=== PATIENT | female | born 1950 | race Caucasian/White ===

== ENCOUNTER 2016-10-23 05:32 | Inpatient (IN) | payer OTHER, MEDICARE ==
[~2016-10-23] VITALS: Ht 162.6 cm; Wt 154.9 kg
[~2016-10-23 05:32] MED LIST: AMLO10TA2 PO; GLIP10TA6 PO; LISI-515 PO; METO50TA PO; TRAM50TA PO
[2016-10-23] MEDS ORDERED: METOPROLOL TARTRATE 25 MG TAB PO PRN (06:00)
[2016-10-23] MEDS ORDERED: CHLORHEXIDINE GLUCONATE 2 % 1 PACK (2 CLOTHS) TOPICAL PRN (06:00)
[2016-10-23] MEDS ORDERED: POVIDONE IODINE 5% (ANTISEPSIS KIT) 4 APPLICATIONS EACH NARE PRN (06:00)
[2016-10-23] MEDS ORDERED: LACTATED RINGER'S 1000 ML IV PRN (06:00)
[2016-10-23] MEDS ORDERED: INSULIN HUMAN REGULAR 1,000 UNITS/10 ML VIAL SQ PRN (06:00)
[2016-10-23] MEDS ORDERED: SODIUM CHLORID 0.9% 500 ML IV PRN (06:00)
[2016-10-23] MEDS ORDERED: ACET-822 PO (06:11)
[2016-10-23 06:22] VITALS: BP 156/70; PULSE 56; RESP 20; TEMP 98.2; O2SAT 93
[2016-10-23] MEDS ORDERED: HEPARIN SODIUM - SQ 10,000 UNITS/ML VIAL SQ SCH (06:30)
[2016-10-23] MEDS ORDERED: ceFAZolin 2 GM PREMIX 50 ML IV SCH (06:30)
[2016-10-23 06:56] LABS: BASOPHIL # 0.1 TH/MM3 (0-0.2); BASOPHIL % 0.6 % (0.0-2.0); EOSINOPHIL # 0.1 TH/MM3 (0-0.4); EOSINOPHIL % 1.2 % (0.0-4.0); HEMATOCRIT 36.9 % (35.0-46.0); HEMO FLAGS DIFF FINAL; LYMPH % 18.3 % (9.0-44.0); LYMPHOCYTE # 1.8 TH/MM3 (1.0-4.8); MEAN CELL VOLUME 88.6 FL (80.0-100.0); MEAN CORPUSCULAR HEMOGLOBIN 29.4 PG (27.0-34.0); MEAN CORPUSCULAR HGB CONC 33.2 % (32.0-36.0); MONO % 8.4 % (0.0-8.0); NEUT % 71.5 % (16.0-70.0); PLATELET COUNT 271 TH/MM3 (150-450); RED BLOOD COUNT 4.16 MIL/MM3 (4.00-5.30); RED CELL DISTRIBUTION WIDTH 14.5 % (11.6-17.2); WHITE BLOOD COUNT 9.8 TH/MM3 (4.0-11.0)
[2016-10-23 07:08] LABS: ALT (GPT) 29 U/L (10-53); ANION GAP 6 MEQ/L (5-15); AST (GOT) 19 U/L (15-37); BICARBONATE 31.5 MEQ/L (21.0-32.0); BLOOD UREA NITROGEN 22 MG/DL (7-18); CHLORIDE 104 MEQ/L (98-107); GLOMERULAR FILTRATION RATE 39 ML/MIN (>89); POTASSIUM 4.3 MEQ/L (3.5-5.1); SODIUM (NA) 141 MEQ/L (136-145)
[2016-10-23] MEDS ORDERED: ARTIFICIAL TEARS OPTH OINT 3.5 APPLIC/3.5 GM TUBO ONE (07:08)
[2016-10-23] MEDS ORDERED: DEXAMETHASONE SOD PHOS 4 MG/ML VIAL ONE (07:09)
[2016-10-23] MEDS ORDERED: SUGAMMADEX SODIUM 200 MG/2 ML VIAL IV PUSH ONE ×2 (07:09)
[2016-10-23] MEDS ORDERED: MIDAZOLAM HCL 2 MG/2 ML VIAL ONE (07:09)
[2016-10-23] MEDS ORDERED: HYDROmorphone HCL PF 2 MG/ML VIAL ONE (07:09)
[2016-10-23 07:10] LABS: ALKALINE PHOSPHATASE 104 U/L (45-117); TOTAL BILIRUBIN ADULT 0.4 MG/DL (0.2-1.0)
[2016-10-23 07:12] LABS: APTT (PATIENT) 31.7 SEC (24.3-30.1)
[2016-10-23] MEDS ORDERED: PROPOFOL 200 MG/20 ML AMP IV ONE (08:33)
[2016-10-23] MEDS ORDERED: NEOSTIGMINE 3 MG/3 ML SYR IV ONE (08:33)
[2016-10-23] MEDS ORDERED: ONDANSETRON HCL 4 MG/2 ML VIAL IV PUSH ONE (08:34)
[2016-10-23] MEDS ORDERED: VECURONIUM BROMIDE 10 MG VIAL IV ONE (08:34)
[2016-10-23] MEDS ORDERED: KETOROLAC TROMETHAMINE 60 MG/2 ML (IM) VIAL IM ONE (08:34)
[2016-10-23] MEDS ORDERED: NORMOSOL R INJ 2,000 ML IV ONE (08:35)
[2016-10-23] MEDS ORDERED: LIDOCAINE 1%/EPINEPHrine 1:100,000 SOLN 30 ML VIAL INFIL ONE (09:37)
[2016-10-23] MEDS ORDERED: ceFAZolin INJ 1,000 MG VIAL IV ONE (10:40)
[2016-10-23] MEDS ORDERED: NALOXONE HCL 0.4 MG/ML AMP IV PRN (12:45)
[2016-10-23] MEDS ORDERED: ONDANSETRON HCL 4 MG/2 ML VIAL IVP PRN (12:45)
[2016-10-23] MEDS ORDERED: diphenhydrAMINE HCL 25 MG CAP PO PRN (12:45)
[2016-10-23] MEDS ORDERED: oxyCODONE/ACETAMINOPHEN 5 MG/325 MG TAB PO PRN (12:45)
[2016-10-23] MEDS ORDERED: SODIUM CHLORIDE 0.9% FLUSH 10 ML FLUSH IV FLUSH PRN (12:45)
[2016-10-23] MEDS ORDERED: LORazepam 0.5 MG TAB PO PRN (12:45)
[2016-10-23] MEDS ORDERED: MORPHINE SULFATE 30 MG/30 ML PCA IV SCH (12:45)
[2016-10-23] MEDS ORDERED: FUROSEMIDE 20 MG/2 ML VIAL ONE (13:18)
[2016-10-23] MEDS ORDERED: fentaNYL CITRATE 250 MCG/5 ML AMP ONE (13:43)
[2016-10-23] MEDS ORDERED: DO NOT ADM ANY ANTICOAGULANT DRUGS PRN (13:45)
[2016-10-23] MEDS ORDERED: DEXTROSE 50% IN WATER 50 ML VIAL(D50) IV PUSH PRN (14:15)
[2016-10-23] MEDS ORDERED: GLUCAGON 1 MG/ML VIAL OTHER PRN (14:15)
[2016-10-23] MEDS: D5-1/2 NS + KCL 20 MEQ INJ 1,000 ML IV SCH ×2 (14:30→23:40)
--- NOTE | 2016-10-23 16:25 | PD.ONC.PN ---
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 on [address] Objective Data Date Time Temp Pulse Resp B/P Pulse Ox O2 Delivery O2 Flow Rate FiO2 10/23/16 14:33 15 10/23/16 13:40 82 15 94 Bi-Pap 50 10/23/16 13:30 82 15 126/58 95 Non-Rebreather 10/23/16 13:15 87 15 168/73 92 Non-Rebreather 10/23/16 13:00 97.7 84 18 154/67 97 Ambu Bag 10/23/16 06:22 98.2 56 20 156/70 93 10/23/16 10/23/16 10/23/16 07:00 15:00 23:00 Intake Total 2000 ml Output Total 700 ml Balance 1300 ml Result Diagram: 10/23/16 0634 10/23/16 0634 Laboratory Results Laboratory Tests Test 10/23/16 06:34 White Blood Count 9.8 TH/MM3 Red Blood Count 4.16 MIL/MM3 Hemoglobin 12.2 GM/DL Hematocrit 36.9 % Mean Corpuscular Volume 88.6 FL Mean Corpuscular Hemoglobin 29.4 PG Mean Corpuscular Hemoglobin 33.2 % Concent Red Cell Distribution Width 14.5 % Platelet Count 271 TH/MM3 Mean Platelet Volume 8.6 FL Neutrophils (%) (Auto) 71.5 % Lymphocytes (%) (Auto) 18.3 % Monocytes (%) (Auto) 8.4 % Eosinophils (%) (Auto) 1.2 % Basophils (%) (Auto) 0.6 % Neutrophils # (Auto) 7.0 TH/MM3 Lymphocytes # (Auto) 1.8 TH/MM3 Monocytes # (Auto) 0.8 TH/MM3 Eosinophils # (Auto) 0.1 TH/MM3 Basophils # (Auto) 0.1 TH/MM3 CBC Comment DIFF FINAL Differential Comment Prothrombin Time 11.0 SEC Prothromb Time International 1.0 RATIO Ratio Activated Partial 31.7 SEC Thromboplast Time Sodium Level 141 MEQ/L Potassium Level 4.3 MEQ/L Chloride Level 104 MEQ/L Carbon Dioxide Level 31.5 MEQ/L Anion Gap 6 MEQ/L Blood Urea Nitrogen 22 MG/DL Creatinine 1.35 MG/DL Estimat Glomerular Filtration 39 ML/MIN Rate Random Glucose 166 MG/DL Calcium Level 9.3 MG/DL Total Bilirubin 0.4 MG/DL Aspartate Amino Transf 19 U/L (AST/SGOT) Alanine Aminotransferase 29 U/L (ALT/SGPT) Alkaline Phosphatase 104 U/L Total Protein 8.0 GM/DL Albumin 3.5 GM/DL Blood Type O POSITIVE Antibody Screen NEGATIVE Blood Bank Comment Administered Medications Medications (Trade) Dose Ordered Sig/William Route PRN Reason Start Time Stop Time Status Last Admin Dose Admin Lactated Ringer's 1,000 ml @ 30 mls/hr Q24H PRN IV SEE LABEL COMMENTS 10/23/16 06:00 10/26/16 05:59 10/23/16 06:25 Potassium Chloride/Dextrose/ Sod Cl (D5-1/2 NS + KCl 20 Meq Inj) 1,000 ml @ 100 mls/hr Q10H IV 10/23/16 14:00 10/23/16 14:30 Morphine Sulfate (Morphine 1 Mg/ ml MILLING MACHINE OPERATOR) 30 mg UNSCH IV 10/23/16 12:45 10/23/16 14:33 Objective Remarks GENERAL: Well-nourished, well-developed patient. SKIN: Warm and dry. HEAD: Normocephalic. EYES: No scleral icterus. No injection or drainage. CARDIOVASCULAR: Regular rate and rhythm without murmurs. RESPIRATORY: Breath sounds equal bilaterally. No accessory muscle use. GASTROINTESTINAL: dressing is C/D/I EXTREMITIES: teds and scds MUSCULOSKELETAL: Adequate muscle tone. NEUROLOGICAL: No obvious focal deficit. sleepy PSYCHIATRIC: Appropriate mood and affect; insight and judgment normal. Assessment/Plan Problem List: (1) Post-operative state Status: Acute Plan: s/p RA converted to X lap hysterectomy with BSO post op orders in chart CBC and PLTS without diff ordered for 1400, LANDFILL ATTENDANT called lab was not completed at the time of this note RN will call Dr. Sears with results MILLING MACHINE OPERATOR for pain clear liquids OOB to chair tomorrow Salazar to be D/Cd on POD #2 Lucie Pulliam Oct 23, 2016 16:25
[2016-10-23 16:50] LABS: HEMATOCRIT 34.2 % (35.0-46.0); MEAN CELL VOLUME 88.5 FL (80.0-100.0); MEAN CORPUSCULAR HGB CONC 32.8 % (32.0-36.0); PLATELET COUNT 262 TH/MM3 (150-450); RED BLOOD COUNT 3.87 MIL/MM3 (4.00-5.30); RED CELL DISTRIBUTION WIDTH 14.6 % (11.6-17.2); REVIEW FLAG FINAL; WHITE BLOOD COUNT 13.3 TH/MM3 (4.0-11.0)
[2016-10-23] MEDS: INSULIN NovoLIN REGULAR SUPPLEMENTAL SCALE SQ SCH ×2 (16:57→21:33)
[2016-10-23] MEDS: KETOROLAC TROMETHAMINE 30 MG/ML (IVP) VIAL IVP SCH ×2 (17:19→23:40)
[2016-10-23 17:20] VITALS: BP 137/66; PULSE 76; RESP 20; TEMP 96.6; O2SAT 92
[2016-10-23] MEDS: PCA - TOTAL MG MORPHINE DELIVERED PER SHIFT SCH ×2 (18:32→23:46)
[2016-10-23 20:00] VITALS: BP 123/59; PULSE 67; RESP 17; TEMP 97.1; O2SAT 94
[2016-10-23] MEDS: SODIUM CHLORIDE 0.9% FLUSH 10 ML FLUSH IV FLUSH SCH (21:00)
[2016-10-23] MEDS: METOPROLOL TARTRATE 50 MG TAB PO SCH (21:00)
[2016-10-23 21:19] VITALS: O2SAT 94
[2016-10-23] MEDS: LISINOPRIL 20 MG TAB PO SCH (21:34)
[2016-10-24] VITALS (8 sets, daily range): BP systolic 115–155; BP diastolic 56–70; PULSE 57–71; RESP 16–20; TEMP 96.6–98; O2SAT 92–95
[2016-10-24] MEDS: PCA - TOTAL MG MORPHINE DELIVERED PER SHIFT SCH ×3 (06:00→22:53)
[2016-10-24] MEDS: KETOROLAC TROMETHAMINE 30 MG/ML (IVP) VIAL IVP SCH ×4 (06:19→23:54)
[2016-10-24] MEDS: INSULIN NovoLIN REGULAR SUPPLEMENTAL SCALE SQ SCH ×4 (06:19→20:57)
[2016-10-24] MEDS: SODIUM CHLORIDE 0.9% FLUSH 10 ML FLUSH IV FLUSH SCH ×2 (08:47→20:59)
[2016-10-24] MEDS: LISINOPRIL 20 MG TAB PO SCH ×2 (08:47→20:55)
[2016-10-24] MEDS: METOPROLOL TARTRATE 50 MG TAB PO SCH ×2 (08:47→21:00)
[2016-10-24] MEDS: D5-1/2 NS + KCL 20 MEQ INJ 1,000 ML IV SCH ×2 (08:49→21:05)
[2016-10-24 10:47] LABS: AUTOMATED NEUTROPHIL # 11.4 TH/MM3 (1.8-7.7); BASOPHIL % 0.2 % (0.0-2.0); EOSINOPHIL % 0.1 % (0.0-4.0); HEMATOCRIT 32.4 % (35.0-46.0); HEMO FLAGS DIFF FINAL; LYMPH % 9.9 % (9.0-44.0); LYMPHOCYTE # 1.3 TH/MM3 (1.0-4.8); MEAN CELL VOLUME 89.9 FL (80.0-100.0); MEAN CORPUSCULAR HEMOGLOBIN 28.4 PG (27.0-34.0); MEAN CORPUSCULAR HGB CONC 31.6 % (32.0-36.0); MONO % 6.3 % (0.0-8.0); NEUT % 83.5 % (16.0-70.0); PLATELET COUNT 256 TH/MM3 (150-450); RED CELL DISTRIBUTION WIDTH 14.8 % (11.6-17.2); WHITE BLOOD COUNT 13.6 TH/MM3 (4.0-11.0)
[2016-10-24 11:22] LABS: BICARBONATE 27.8 MEQ/L (21.0-32.0); MAGNESIUM 1.9 MG/DL (1.5-2.5); POTASSIUM 4.4 MEQ/L (3.5-5.1)
--- NOTE | 2016-10-24 23:36 | MP ---
cc: JEMIMA AMAYA KELLY L. MD BROOKS, JEFFREY B. M.D. DATE OF SURGERY: 10/23/2016 PREOPERATIVE DIAGNOSIS: Endometrial cancer. Prominent enlarged uterus. POSTOPERATIVE DIAGNOSIS: Endometrial cancer. Prominent enlarged uterus. PROCEDURE: Robotic-assisted laparoscopic initiation of pelvic dissection converted to exploratory laparotomy, total abdominal hysterectomy, bilateral salpingo-oophorectomy. SURGEON Maria Del Carmen Sears MD. SUPERVISOR [employer] Rich cancer genetics assistant. ANESTHESIA: General endotracheal anesthesia ESTIMATED BLOOD LOSS 500 cc IV FLUIDS 2000 cc URINE OUTPUT 200 cc HISTORY 65-year-old female, postmenopausal bleeding, prominent endometrium, biopsy showed endometrial adenocarcinoma. The uterus was enlarged including extension of the lower uterine segment. She was counseled regarding treatment approaches. She was in favor of surgery and in favor of minimally invasive techniques if possible. She was counseled in our office and counseled again in the preop holding area regarding the technical challenges in her case such that we estimated a 50/50 chance that her case may need to be converted to external. She expressed good understanding and would like to move forward with surgery. FINDINGS The uterine cavity sounds to 14 cm, it is symmetrically enlarged, prominent, firm including some dilation of the lower uterine segment. Mobility and visibility were hindered. There was no overt mass in the left ovary. The right ovary was a bit friable, prominent, no appreciably enlarged pelvic or para-aortic lymph node. The liver diaphragm edges were smooth. The omentum grossly appeared normal. The peritoneal surfaces were without any over tumor implants. The pathology on the hysterectomy specimen showed tumor that invaded essentially 100% through the myometrium, also was adenocarcinoma found in one of the ovaries, could not be determined on frozen section that this was metastatic from the endometrium or a separate primary tumor. There appeared to be some disruption of the capsule grossly at the time of surgery. All grossly visible abnormalities were removed by surgery as there was no overt disease beyond the pelvic structures. STATEMENT OF COMPLEXITY modifier(s) should be applied given that her surgery was increased in complexity by significant measures for several reasons including body habitus with a weight of 160 kilograms and a large uterus greater than 250 grams, as well as adhesions from prior surgeries that required lysis of adhesions.. DESCRIPTION OF PROCEDURE: The patient taken to the operating room, placed in dorsal lithotomy position after general endotracheal anesthesia was administered. Time-out was undertaken. The patient was identified by sight, recognition and hospital ID bracelet and the proposed procedure was reviewed and confirmed. She was carefully positioned in padded Marino stirrups. Her arms were padded and secured to the sides. She was further secured to the operating table with egg crate padding and tape in across chest over the shoulder fashion. All sites noted be properly aligned with no malalignments or pressure points. She was prepped in sterile fashion, draped below the waist, placed in high lithotomy position. The cervix was grasped, the uterine cavity sounded to 14 cm. The cervix was dilated and a VCare manipulator was inserted and secured in the usual fashion. However, a small VCare was all that could be used due to her nulliparous pelvic outlet, narrowing of the anatomical tissue. Salazar catheter placed in the bladder. She was returned to low lithotomy position, change of sterile gloves was undertaken. We completed draping in anticipation of laparoscopy. Confirmed that an oral gastric tube was in the stomach on suction and with manual elevation of the abdominal wall, a 5 mm cannula inserted into the left upper quadrant. Carbon dioxide gas was insufflated and an atraumatic entry was confirmed. A 12 mm cannula placed in the midline above the umbilicus, 8 mm cannula was placed in the right upper abdomen and left lateral abdomen. The original 5 exchanged for a 8-mm cannula as she was placed in Trendelenburg position. We had to modify the Trendelenburg and decrease her intraperitoneal pressure to maintain satisfactory parameters from anesthesia standpoint. Nevertheless, reviewing the anatomy and assessing, it was felt that it was reasonable to initiate dissection laparoscopically. Three Ray-Terrance sponges were placed around the root of the small bowel mesentery, robotic system brought into the operative field and attached in the usual fashion. Monopolar scissors, fenestrated bipolar forceps and Prograsp manipulators were placed in arms #1, 2 and 3 respectively, and I took my place at the surgeon's console. Right round ligament isolated, cauterized, transected. The anterior and posterior leafs of the broad ligament were opened. The right ureter was identified. The right infundibulopelvic ligament was isolated. It was isolated to the level of the pelvic brim, cauterized and transected. The posterior peritoneum was opened along the right side of the uterus and cervix and initiation of taken down adhesions from the bladder scarred to the anterior uterus, and initiation of dissecting the bladder flap was carried out on the right side. Attention was directed toward the left side. Left round ligament isolated, cauterized and transected. The anterior and posterior leaves of the broad ligament were opened, lysis of adhesions were carried out to mobilize the colon. Retroperitoneal dissected allowed identification of the left ureter, the left infundibulopelvic ligament was isolated and cauterized at the level of the pelvic brim and transected. Posterior peritoneum opened on the left side of uterus and cervix and initiation of lysis of adhesions and dissecting the bladder flap was started on the left side. The uterine vessels were skeletonized bilaterally. The uterine vessels were cauterized thoroughly but there was seen to still some back bleeding. There was impression of possible tumor infiltration into the uterine vessels, even with firm elevation from the VCare manipulator and retractors, and Ray-Terrance sponges on the sigmoid colon and retracting the bowel, visibility remained constant struggle. The enlarged uterus as well as prominence of the lower uterine segment such that clear visibility and dissection were difficult. Nevertheless efforts were continued laparoscopically and there was modest amount of bleeding, it was felt that the uterine vessels could not safely and adequately be visualized and be secured completely with these methods so decision was made to convert to laparotomy. Robotic instruments were removed. Robotic system was disengaged from the operative field and we reentered the bedside under sterile condition. Using laparoscope guidance, we closed the 12 millimeter fascial defect with interrupted 0 Vicryl sutures which rendered the fascia completely airtight and hemostatic. The remaining cannulas were withdrawn and the carbon dioxide gas was removed from the peritoneal cavity. Midline vertical incision was made through preexisting vertical abdominal wall scars from the symphysis to the umbilicus, carried down to the level of the fascia. The fascia was entered. The rectus muscles were in the midline and the peritoneal cavity was entered and extended the length of the skin incision. Each of the three Ray-Terrance sponges that were placed in the pelvis were now removed. Each were inspected and noted to be removed in their entirety. The right tube and ovary which had been detached, friable in appearance was removed from the pelvis as well. Bookwalter retractor and lap pads were used to gain surgical exposure. Clamps were placed at the lateral angles of the uterus to help facilitate elevation. Each of the uterine vessel pedicles were now clamped with Morales clamps, cut and suture ligated. The remaining cardinal, paracervical and uterosacral ligaments were isolated, clamped, cut and suture ligated until curved Morales clamps could be placed below the cervix at the lateral vaginal angles and sharp dissection was used to separate the cervix from the upper vagina. Specimen was inspected. The entire cervix was removed and the specimen including uterus, cervix and the attached left tube and ovary. Vaginal cuff was closed with interrupted [id number] 0 Vicryl sutures including and incorporating the posterior peritoneum and the edge of the uterosacral ligament. The cuff was closed with interrupted [id number] sutures which rendered it completely hemostatic and well supported. The pelvis thoroughly irrigated. Small bleeders rendered hemostatic with bipolar cautery. Visual and manual inspection revealed no enlarged retroperitoneal lymph nodes, there were no peritoneal implants. The abdomen was again inspected. No obvious tumor beyond the gynecologic organs. Given that she had already been under anesthesia a significant period of time with her underlying risk factors, and no gross visible disease remaining, it was felt that additional time under anesthesia for staging steps to look for microscopic disease would likely be associated with morbidity that exceeded benefit, especially given what appeared to be ovarian tumor with disruption of the capsule which may necessitate postoperative therapy recommendations. Accordingly the lap pads were removed. The Bookwalter retractor was disassembled. Hemostatic Allison powder was placed in the pelvis. All lap pads were removed. Visual and manual inspection confirmed there were no remaining foreign objects in the peritoneal cavity and attention was directed toward closing. The abdominal wall was closed with 0 looped PDS starting at the apices and a running continuous modified Smead-Terry fashion tied securely. The subcutaneous tissue was irrigated. Tigre's fascia reapproximated with 2-0 Vicryl sutures. The skin edges with the preexisting scar was closed with branden. Dry sterile dressing was placed over the incision. Preliminary and final counts were correct. She was returned to dorsal supine position and was pending reversal of anesthesia, however, prior to this she had been replaced in lithotomy position. Pelvic exam confirmed the vaginal cuff was well supported. The VCare manipulator had been removed from the cervix during hysterectomy. There were no vaginal lacerations. No remaining foreign objects in the vagina. Now she was returned to supine position and was pending reversal of anesthesia when I left the operating room to precede her to the Post-Anesthesia Care Unit and to speak to family members who were waiting in the surgical care area. MD DIA Urias/JOSI /12:23 PM /11:09 PM DONG
[2016-10-25] VITALS (7 sets, daily range): BP systolic 131–150; BP diastolic 59–70; PULSE 65–73; RESP 16–22; TEMP 97.9–98.8; O2SAT 92–94
[2016-10-25] MEDS: D5-1/2 NS + KCL 20 MEQ INJ 1,000 ML IV SCH ×3 (06:00→21:07)
[2016-10-25] MEDS: KETOROLAC TROMETHAMINE 30 MG/ML (IVP) VIAL IVP SCH ×3 (06:32→18:34)
[2016-10-25] MEDS: INSULIN NovoLIN REGULAR SUPPLEMENTAL SCALE SQ SCH ×4 (06:36→21:34)
[2016-10-25] MEDS: PCA - TOTAL MG MORPHINE DELIVERED PER SHIFT SCH (06:53)
--- NOTE | 2016-10-25 08:38 | PD.ONC.PN ---
Subjective Subjective Remarks POD #2 pt resting in bed states she is drinking and eating without nausea or vomiting has walked a short distance in her room pain controlled IS at bedside and she is using as directed Objective Data Date Time Temp Pulse Resp B/P Pulse Ox O2 Delivery O2 Flow Rate FiO2 10/25/16 06:53 19 10/25/16 04:00 98.8 65 16 131/59 93 10/25/16 00:00 98.5 66 16 134/61 92 10/24/16 22:53 18 10/24/16 21:51 93 Nasal Cannula 1.00 10/24/16 20:00 98.0 71 16 121/56 92 10/24/16 16:32 97.9 65 20 155/70 92 10/24/16 12:00 98.0 62 18 133/63 94 10/24/16 08:45 94 Nasal Cannula 2.00 10/25/16 10/25/16 10/25/16 07:00 15:00 23:00 Intake Total 2414 ml Output Total 375 ml Balance 2039 ml Result Diagram: 10/24/16 1005 10/24/16 1005 Laboratory Results Laboratory Tests Test 10/24/16 10:05 White Blood Count 13.6 TH/MM3 Red Blood Count 3.60 MIL/MM3 Hemoglobin 10.2 GM/DL Hematocrit 32.4 % Mean Corpuscular Volume 89.9 FL Mean Corpuscular Hemoglobin 28.4 PG Mean Corpuscular Hemoglobin 31.6 % Concent Red Cell Distribution Width 14.8 % Platelet Count 256 TH/MM3 Mean Platelet Volume 8.9 FL Neutrophils (%) (Auto) 83.5 % Lymphocytes (%) (Auto) 9.9 % Monocytes (%) (Auto) 6.3 % Eosinophils (%) (Auto) 0.1 % Basophils (%) (Auto) 0.2 % Neutrophils # (Auto) 11.4 TH/MM3 Lymphocytes # (Auto) 1.3 TH/MM3 Monocytes # (Auto) 0.9 TH/MM3 Eosinophils # (Auto) 0.0 TH/MM3 Basophils # (Auto) 0.0 TH/MM3 CBC Comment DIFF FINAL Differential Comment Sodium Level 138 MEQ/L Potassium Level 4.4 MEQ/L Chloride Level 102 MEQ/L Carbon Dioxide Level 27.8 MEQ/L Anion Gap 8 MEQ/L Blood Urea Nitrogen 25 MG/DL Creatinine 1.53 MG/DL Estimat Glomerular Filtration 34 ML/MIN Rate Random Glucose 199 MG/DL Calcium Level 8.9 MG/DL Magnesium Level 1.9 MG/DL Administered Medications Medications (Trade) Dose Ordered Sig/William Route PRN Reason Start Time Stop Time Status Last Admin Dose Admin Lactated Ringer's (Lr 1000 ml Inj) 1,000 ml @ 30 mls/hr Q24H PRN IV SEE LABEL COMMENTS 10/23/16 06:00 10/26/16 05:59 10/23/16 06:25 Amlodipine Besylate (Norvasc) 10 mg DAILY PO 10/24/16 09:00 10/24/16 08:46 Lisinopril 20 mg 20 mg BID PO 10/23/16 21:00 10/24/16 20:55 Potassium Chloride/Dextrose/ Sod Cl (D5-1/2 NS + KCl 20 Meq Inj) 1,000 ml @ 42 mls/hr [id number] IV 10/23/16 14:00 10/25/16 06:00 Ketorolac Tromethamine (Toradol Inj) 15 mg Q6H IVP 10/23/16 18:00 10/26/16 12:01 10/25/16 06:32 Objective Remarks GENERAL: Well-nourished, well-developed patient. SKIN: Warm and dry. HEAD: Normocephalic. EYES: No scleral icterus. No injection or drainage. NECK: Supple, trachea midline. CARDIOVASCULAR: Regular rate and rhythm without murmurs. RESPIRATORY: Breath sounds equal bilaterally. No accessory muscle use. GASTROINTESTINAL: dressing C/D/I EXTREMITIES: teds and scds MUSCULOSKELETAL: Adequate muscle tone. NEUROLOGICAL: No obvious focal deficit. Awake, alert, and oriented x3. PSYCHIATRIC: Appropriate mood and affect; insight and judgment normal. Assessment/Plan Problem List: (1) Post-operative state Status: Acute Plan: s/p RA converted to X lap hysterectomy with BSO post op day #2 roslyn has been D/Cd ADAT OOB to chair and ambulate D/C DEHAIRER today anticipate discharge tomorrow pathology pending pt will follow up in office X 2 weeks for final pathology Lucie Pulliam Oct 25, 2016 08:38
[2016-10-25] MEDS: LISINOPRIL 20 MG TAB PO SCH ×2 (08:44→21:05)
[2016-10-25] MEDS: METOPROLOL TARTRATE 50 MG TAB PO SCH ×2 (08:44→21:05)
[2016-10-25] MEDS: SODIUM CHLORIDE 0.9% FLUSH 10 ML FLUSH IV FLUSH SCH ×2 (08:45→21:06)
[2016-10-26] VITALS: BP 145/65; PULSE 72; RESP 18; TEMP 98.2; O2SAT 99
[2016-10-26] MEDS: KETOROLAC TROMETHAMINE 30 MG/ML (IVP) VIAL IVP SCH ×3 (00:11→13:30)
[2016-10-26 04:00] VITALS: BP 128/59; PULSE 57; RESP 17; TEMP 97.3; O2SAT 93
[2016-10-26] MEDS: INSULIN NovoLIN REGULAR SUPPLEMENTAL SCALE SQ SCH ×2 (06:27→11:00)
[2016-10-26 07:07] LABS: HEMATOCRIT 30.4 % (35.0-46.0); MEAN CELL VOLUME 89.3 FL (80.0-100.0); MEAN CORPUSCULAR HEMOGLOBIN 29.5 PG (27.0-34.0); MEAN CORPUSCULAR HGB CONC 33.1 % (32.0-36.0); PLATELET COUNT 235 TH/MM3 (150-450); RED CELL DISTRIBUTION WIDTH 14.7 % (11.6-17.2); REVIEW FLAG FINAL; WHITE BLOOD COUNT 10.2 TH/MM3 (4.0-11.0)
[2016-10-26 07:35] LABS: BICARBONATE 27.3 MEQ/L (21.0-32.0); POTASSIUM 4.8 MEQ/L (3.5-5.1)
[2016-10-26 08:00] VITALS: BP 139/70; PULSE 61; RESP 21; TEMP 97.4; O2SAT 92
[2016-10-26] MEDS: LISINOPRIL 20 MG TAB PO SCH (08:37)
[2016-10-26] MEDS: METOPROLOL TARTRATE 50 MG TAB PO SCH (08:38)
[2016-10-26] MEDS: oxyCODONE/ACETAMINOPHEN 5 MG/325 MG TAB PO PRN ×2 (08:45→13:32)
[2016-10-26] MEDS ORDERED: OXYC1TAB63 PO (08:48)
--- NOTE | 2016-10-26 08:57 | HHI.DS ---
Discharge Summary Admission Date Oct 23, 2016 at 12:44 Discharge Date: Oct 26, 2016 Admitting Diagnosis endometrial cancer enlarged uterus (1) Endometrial cancer Diagnosis: Principal Procedures RA lap converted to X Lap hysterectomy with BSO Brief History This is a 65 year old who reported post menopausal bleeding. She was evaluated and biopsy shown endometrial cancer with enlarged uterus. She elected for definitive surgery. CBC/BMP: 10/26/16 0614 10/26/16 0614 Significant Findings Laboratory Tests Test 10/23/16 10/24/16 10/26/16 16:07 10:05 06:14 White Blood Count 13.3 TH/MM3 13.6 TH/MM3 (4.0-11.0) (4.0-11.0) Red Blood Count 3.87 MIL/MM3 3.60 MIL/MM3 3.40 MIL/MM3 (4.00-5.30) (4.00-5.30) (4.00-5.30) Hemoglobin 11.2 GM/DL 10.2 GM/DL 10.0 GM/DL (11.6-15.3) (11.6-15.3) (11.6-15.3) Hematocrit 34.2 % 32.4 % 30.4 % (35.0-46.0) (35.0-46.0) (35.0-46.0) Mean Corpuscular Hemoglobin 31.6 % Concent (32.0-36.0) Neutrophils (%) (Auto) 83.5 % (16.0-70.0) Neutrophils # (Auto) 11.4 TH/MM3 (1.8-7.7) Blood Urea Nitrogen 25 MG/DL (7-18) 35 MG/DL (7-18) Creatinine 1.53 MG/DL 1.39 MG/DL (0.50-1.00) (0.50-1.00) Estimat Glomerular Filtration 34 ML/MIN (>89) 38 ML/MIN (>89) Rate Random Glucose 199 MG/DL 156 MG/DL (74-106) (74-106) PE at Discharge general: pt sitting up in chair eating breakfast in NAD heent: normocephalic atraumatic heart: RRR no MMR Lung: CTA bilat abd: dressing c/d/i ext: pt is ambulatory, TEDs Hospital Course Patient underwent RA converted to X Lap hysterectomy with BSO for diagnosis of endometrial cancer with enlarged uterus. She has had an uneventful hospital course. She was using [employer] for pain and that was D/Cd on POD #2 and she has been using Percocet for pain control. Her diet advanced with out any N/V and she has been up to urinate without problems. Pt Condition on Discharge: Good Discharge Disposition: Discharge Home Discharge Instructions DIET: Follow Instructions for: As Tolerated, No Restrictions Activities you can perform: Pelvic Rest Activities to avoid: Lifting/Bending, Strenuous Activity, Sexual Activity Follow up Referrals: Appointment for Follow Up - 2 Weeks @ [facility] New Medications: Oxycodone-Acetaminophen (Oxycodone-Acetaminophen) 5-325 mg Tab 1 TAB PO Q4H PRN PAIN SCALE 1 TO 5 #24 TAB Continued Medications: Acetaminophen (Tylenol Extra Strength) 500 Mg Tablet 1000 MG PO BID PRN PAIN SCALE 1 TO 10 Amlodipine (Amlodipine) 10 Mg Tab 10 MG PO DAILY Blood Pressure Management #30 Ref 0 TAB Glipizide (Glipizide) 10 Mg Tab 10 MG PO BIDAC Take 30 minutes before a meal Blood Sugar Management #60 Ref 0 TAB Lisinopril (Lisinopril) 20 Mg Tab 20 MG PO BID #30 Ref 0 TAB Metoprolol Tartrate (Metoprolol Tartrate) 50 Mg Tab 50 MG PO BID #60 Ref 0 TAB Discontinued Medications: Tramadol (Tramadol) 50 Mg Tab 50 MG PO Q4H PRN PAIN Ref 0 TAB Lucie Pulliam Oct 26, 2016 08:57
[2016-10-26] MEDS: SODIUM CHLORIDE 0.9% FLUSH 10 ML FLUSH IV FLUSH SCH (09:00)
--- NOTE | 2016-10-26 11:40 | HHI.FF ---
Face to Face Verification Diagnosis: (1) Post-operative state (2) Endometrial cancer Physical Therapy Order: Evaluate and Treat, Improve ambulation, Strength and gait training Instructions: patient is s/p X Lap for diagnosis of endometrial cancer. Home Health Nursing Order: Wound care and dressing changes Instructions: monitor for s/s of infection to X Lap incision I have seen patient Shobha Berry on 10/26/16. My clinical findings support the need for the requested home health care services because: Deconditioned w/ increased weakness I certify that my clinical findings support that this patient is homebound because: Post-op weakness Unsteady gait/balance Lucie Pulliam [facility] Oct 26, 2016 11:40
[2016-10-26 11:58] VITALS: O2SAT 92
[2016-10-26 12:20] VITALS: BP 132/61; PULSE 61; RESP 18; TEMP 97.2; O2SAT 93
== END 2016-10-26 14:43 | disposition home or self-care (01) | DRG 740 ==
LOC: HSDC 05:32 → HSDI 12:44 → HOCB 17:10
PROVIDERS: ADMIT Obstetrics & Gynecology Gynecologic Oncology; ATTEND Obstetrics & Gynecology Gynecologic Oncology
PROC: 0UT20ZZ Resection of Bilateral Ovaries, Open Approach (ICD-10-PCS; 2016-10-23)
PROC: 0UTC0ZZ Resection of Cervix, Open Approach (ICD-10-PCS; 2016-10-23)
PROC: 0UT70ZZ Resection of Bilateral Fallopian Tubes, Open Approach (ICD-10-PCS; 2016-10-23)
PROC: 0DNW4ZZ Release Peritoneum, Percutaneous Endoscopic Approach (ICD-10-PCS; 2016-10-23)
PROC: 8E0W4CZ Robotic Assisted Procedure of Trunk Region, Percutaneous Endoscopic Approach (ICD-10-PCS; 2016-10-23)
PROC: 5A09357 Assistance with Respiratory Ventilation, Less than 24 Consecutive Hours, Continuous Positive Airway Pressure (ICD-10-PCS; 2016-10-23)
PROC: 0UT90ZZ Resection of Uterus, Open Approach (ICD-10-PCS; principal; 2016-10-23 07:12)
DX: C54.1 Malignant neoplasm of endometrium (principal); C79.60 Secondary malignant neoplasm of unspecified ovary; N85.2 Hypertrophy of uterus; Z53.31 Laparoscopic surgical procedure converted to open procedure; N95.0 Postmenopausal bleeding
CPT/HCPCS: 76937; 80048; 80053; 82948; 83735; 85025; 85027; 85610; 85730; 86850; 86900; 86901; 88307; 88309; 88331; 94150; J0690; J1100; J1170; J1644; J1815; J1885; J1940; J2250; J2270; J2405; J2710; J3010; J3480; J7120

== ENCOUNTER 2016-12-22 20:08 | Inpatient (IN) | payer OTHER, MEDICARE ==
[~2016-12-22] VITALS: Ht 162.6 cm; Wt 154.7 kg
[~2016-12-22 20:08] MED LIST changes: +ACET-822 PO; +ACETAMINOPHEN 325 MG TAB PO PRN; +ACETAMINOPHEN/HYDROcodone 325 MG/5 MG TAB PO PRN; +ACETAMINOPHEN/HYDROcodone 325 MG/7.5 MG TAB PO PRN; +BISACODYL 10 MG SUPP RECTAL PRN; +DEXTROSE 50% IN WATER 50 ML VIAL(D50) IV PRN; +GLUCAGON 1 MG/ML VIAL OTHER PRN; +LACTULOSE SYRUP 20 GM/30 ML CUP PO PRN; +MAGNESIUM HYDROXIDE SUSP 30 ML CUP PO PRN; +NALOXONE HCL 0.4 MG/ML AMP IV PRN; +ONDANSETRON HCL 4 MG/2 ML VIAL IVP PRN; +OXYC1TAB63 PO; +SENNOSIDES 8.6 MG TAB PO PRN; +Vancomycin Consult Pharmacy 1 EA OTHER SCH
[2016-12-22 20:30] VITALS: BP 153/69; PULSE 60; RESP 18; TEMP 98.5; O2SAT 94
[2016-12-22] MEDS: DOCUSATE SODIUM 50 MG/SENNA 8.6 MG TAB PO SCH (21:00)
[2016-12-22] MEDS: INSULIN ASPART SUPPLEMENTAL SCALE SQ SCH (21:00)
[2016-12-22] MEDS: PIPERACIL-TAZO 3.375 GM PREMIX 50 ML IV SCH (22:00)
[2016-12-22] MEDS: HEPARIN SODIUM - SQ 10,000 UNITS/ML VIAL SQ SCH (23:16)
--- NOTE | 2016-12-22 23:45 | HHI.HP ---
[facility] Service [place] [facility] Primary Care Physician Unknown Admission Diagnosis cellulitis, post-op infection . Diagnoses: (1) Cellulitis (2) Post-operative infection (3) Type 2 diabetes mellitus (4) Hypertension (5) Chronic back pain (6) Anemia (7) Chronic kidney disease Chief Complaint: purulent and serous drainiage from abdominal wound Travel History International Travel<30 Days: No Contact w/Intl Traveler <30 Da: No History of Present Illness 66 y/o female with endometrial and ovarian cancer s/p robotic assisted lap followed by exploratory laparotomy with KATHARINE with BSO on 10/23/16 who presented to ED on 12/22/16 with erythema and drainage in surgical area. The patient underwent a robotic-assisted laparoscopy on 10/23/[address] Sears which was changed to exploratory laparotomy with total abdominal hysterectomy and bilateral salpingo-oophorectomy. She is still making up her mind whether or not to proceed with recommended chemotherapy and radiation. She has had an open wound in the postoperative surgical site and has been receiving home health with wound care. On 11/10/16, she had a wound culture + for staph aureus. She was treated with antibiotics and Dr. Sears' office visit notes indicate that the wound is still open but healing well without purulent drainage or foul smell. On 12/21/2016, she got up and went to the bathroom and noticed a large amount of blood and purulent drainage "pouring" out of her wound and onto the floor and into the toilet. She states that she thought the wound was getting better until this point. She has also had some burning pain in this open area. She states when she woke up on 12/22/2016, her entire lower abdominal wall was erythematous prompting her to seek medical attention. She denies any fever, chills, recent illness, nausea, vomiting, diarrhea, or shortness of breath. She does report a dry, nonproductive cough that started today. 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 Past Surgical History Total abdominal hysterectomy with BSO on 10/23/2016. Breast biopsy and lumpectomy 1970s with benign findings 2 Bilateral tubal ligation Back surgery for lumbar stenosis 2013 Lithotripsy Tonsillectomy . Reported Medications Reported Meds & Active Scripts Active Reported Tramadol (Tramadol HCl) 50 Mg Tab 50 Mg PO HS PRN Glipizide 10 Mg Tab 10 Mg PO BIDAC Take 30 minutes before a meal Metoprolol Tartrate 50 Mg Tab 50 Mg PO BID Lisinopril 20 Mg Tab 20 Mg PO BID Amlodipine (Amlodipine Besylate) 10 Mg Tab 10 Mg PO DAILY . Allergies: Coded Allergies: No Known Allergies (Unverified , 12/22/16) Active Ordered Medications . Current Medications Sodium Chloride 1,000 ml @ 70 mls/hr [id number] IV ; Start 12/22/16 at 16:45 Acetaminophen (Tylenol) 650 mg Q4H PRN PO TEMP > 100.4; Start 12/22/16 at 16:45 Ondansetron HCl (Zofran Inj) 4 mg Q6H PRN IVP NAUSEA OR VOMITING; Start at 16:45 Heparin Sodium (Porcine) (Heparin Inj) 5,000 units Q12H SQ Last administered on 12/22/16 23:16; Start 12/22/16 at 22:00 Acetaminophen/ Hydrocodone Bitart ([place] 5-325 Mg) 1 tab Q4H PRN PO PAIN SCALE 3 TO 5; Start 12/22/16 at 16:45; Stop 12/22/16 at 23:50; Status DC Acetaminophen/ Hydrocodone Bitart ([place] 7.5-325 Mg) 1 tab Q4H PRN PO PAIN SCALE 6 TO 10 Last administered on 12/22/16 23:24; Start 12/22/16 at 16:45; Stop 12/22/16 at 23:50; Status DC Naloxone HCl (Narcan Inj) 0.4 mg UNSCH PRN IV SEE LABEL COMMENTS; Start at 16:45 Senna/Docusate Sodium (Svitlana-Colace) 1 tab BID PO ; Start 12/22/16 at 21:00 Magnesium Hydroxide (Milk Of Magnesia Liq) 30 ml Q12H PRN PO MILD - MODERATE CONSTIPATION; Start 12/22/16 at 16:45 Sennosides (Senokot) 17.2 mg Q12H PRN PO MODERATE - SEVERE CONSTIPATION; Start 12/22/16 at 16:45 Bisacodyl (Dulcolax Supp) 10 mg DAILY PRN RECTAL SEVERE CONSITIPATION; Start at 16:45 Lactulose (Lactulose Liq) 30 ml DAILY PRN PO SEVERE CONSITIPATION; Start at 16:45 Pharmacy Profile Note 0 ml @ 0 mls/hr UNSCH OTHER ; Start 12/22/16 at 16:45 Piperacillin Sod/ Tazobactam Sod 50 ml @ 100 mls/hr Q6H IV ; Start 12/22/16 at 22:00 Dextrose (D50w (Vial) Inj) 50 ml UNSCH PRN IV HYPOGLYCEMIA-SEE COMMENTS; Start 12/22/16 at 19:45 Glucagon (Glucagon Inj) 1 mg UNSCH PRN OTHER HYPOGLYCEMIA-SEE COMMENTS; Start 12/22/16 at 19:45 Insulin Aspart (NovoLOG SUPPLEMENTAL SCALE) 1 ACHS SLIDING SCALE SQ ; Start 12/22/16 at 21:00 Vancomycin HCl 2300 mg/Sodium Chloride 523 ml @ 250 mls/hr ONCE ONCE IV ; Start 12/23/16 at 00:00; Stop 12/23/16 at 02:05 Tramadol HCl (Ultram) 50 mg Q4H PRN PO PAIN SCALE 3 TO 10; Start 12/23/16 at 00: 00 Family History Mother with breast cancer and son with seizures Not close to father and therefore history is unknown . Social History Tobacco: Denies Alcohol: Occasional wine Illicit Drugs: Denies . Physical Exam Vital Signs Vital Signs Date Time Temp Pulse Resp B/P (MAP) Pulse Ox O2 Delivery O2 Flow Rate FiO2 12/22/16 20:30 98.5 60 18 153/69 (97) 94 Physical Exam GENERAL: This is a morbidly obese female patient, in no apparent distress. SKIN: erythema beneath umbilicus to beneath panniculus; small open wound a couple of centimeters inferior to umbilicus with purulent and serous drainage. HEAD: Atraumatic. Normocephalic. EYES: No scleral icterus. No injection or drainage. ENT: Nose without bleeding, purulent drainage. NECK: Trachea midline. No JVD or lymphadenopathy. CARDIOVASCULAR: Regular rate and rhythm without murmurs, gallops, or rubs. +2 Pedal pulses, dorsalis bilat. RESPIRATORY: Clear to auscultation. Breath sounds equal bilaterally. No wheezes , rales, or rhonchi. GASTROINTESTINAL: Abdomen soft, non-tender, nondistended. No guarding. MUSCULOSKELETAL: Extremities without clubbing, cyanosis. No calf tenderness. NEUROLOGICAL: Awake and alert. Motor and sensory grossly within normal limits. Normal speech. . Caprini VTE Risk Assessment Caprini VTE Risk Assessment: Mod/High Risk (score >= 2) Caprini Risk Assessment Model Point Value = 1 Point Value = 2 Point Value = 3 Point Value = 5 Age 41-60 Minor surgery BMI > 25 kg/m2 Swollen legs Varicose veins or History of unexplained or recurrent spontaneous Oral contraceptives or hormone replacement Sepsis (< 1 month) Serious lung disease, including pneumonia (< 1 month) Abnormal pulmonary function Acute myocardial infarction Congestive heart failure (< 1 month) History of inflammatory bowel disease Medical patient at bed rest Age 61-74 Arthroscopic surgery Major open surgery (> 45 min) Laparoscopic surgery (> 45 min) Malignancy Confined to bed (> 72 hours) Immobilizing plaster cast Central venous access Age >= 75 History of VTE Family history of VTE Factor V Leiden Prothrombin [id number] Lupus anticoagulant Anticardiolipin antibodies Elevated serum homocysteine Heparin-induced thrombocytopenia Other congenital or acquired thrombophilia Stroke (< 1 month) Elective arthroplasty Hip, pelvis, or leg fracture Acute spinal cord injury (< 1 month) Prophylaxis Regimen Total Risk Factor Score Risk Level Prophylaxis Regimen 0-1 Low Early ambulation 2 Moderate Order ONE of the following: *Sequential Compression Device (SCD) *Heparin 5000 units SQ BID 3-4 Higher Order ONE of the following medications: *Heparin 5000 units SQ TID *Enoxaparin/Lovenox 40 mg SQ daily (WT < 150 kg, CrCl > 30 mL/min) *Enoxaparin/Lovenox 30 mg SQ daily (WT < 150 kg, CrCl > 10-29 mL/min) *Enoxaparin/Lovenox 30 mg SQ BID (WT < 150 kg, CrCl > 30 mL/min) AND/OR *Sequential Compression Device (SCD) 5 or more Highest Order ONE of the following medications: *Heparin 5000 units SQ TID (Preferred with Epidurals) *Enoxaparin/Lovenox 40 mg SQ daily (WT < 150 kg, CrCl > 30 mL/min) *Enoxaparin/Lovenox 30 mg SQ daily (WT < 150 kg, CrCl > 10-29 mL/min) *Enoxaparin/Lovenox 30 mg SQ BID (WT < 150 kg, CrCl > 30 mL/min) AND *Sequential Compression Device (SCD) Assessment and Plan Problem List: (1) Cellulitis ICD Code: L03.90 - Cellulitis, unspecified (2) Post-operative infection ICD Code: T81.4XXA - Infection following a procedure, initial encounter (3) Type 2 diabetes mellitus ICD Code: E11.9 - Type 2 diabetes mellitus without complications Status: Chronic (4) Hypertension ICD Code: I10 - Essential (primary) hypertension Status: Chronic (5) Chronic kidney disease ICD Code: N18.9 - Chronic kidney disease, unspecified Status: Chronic (6) Chronic back pain ICD Code: M54.9 - Dorsalgia, unspecified; G89.29 - Other chronic pain Status: Chronic (7) Anemia ICD Code: D64.9 - Anemia, unspecified Assessment and Plan 66 y/o female with endometrial and ovarian cancer s/p robotic assisted lap followed by exploratory laparotomy with KATHARINE with BSO on 10/23/16 who presented to ED with erythema and drainage in surgical area. Cellulitis, abdominal wall Post-operative wound infection - WBC 12.2 with neutrophilia, lactic acid 1.0 - antibiotics: IV Zosyn and Vancomycin - await culture results from abdominal wound and adjust therapy if necessary - consult Dr. Sears, plant security guard oncology surgeon - consult wound care nurse to assist with wound care Type 2 Diabetes Mellitus - resume home Glipizide - Accu-Cheks before meals and at bedtime with low-dose NovoLog sliding scale coverage - Hypoglycemia protocol - Monitor trends and blood glucose readings and adjust treatments as indicated - 1800 ADA diet Hypertension - continue home medications - monitor trends in blood pressure readings and adjust treatment as needed Chronic back pain secondary to lumbar spinal stenosis - takes Tramadol 50 mg qhs as needed for pain - prefers to take Tramadol for pain - will change analgesic regimen to Tramadol 50 mg q4h PRN pain Chronic kidney disease - BUN 19, creatinine 1.30, EGFR 41- stable compared to prior labs - Recheck BMP in a.m. and follow trends in renal indices - Avoid nephrotoxins Anemia, likely chronic secondary to CKD - H&H 10.5 and 33.2 - appears stable compared to prior labs - recheck cbc in a.m. and follow results/trends DVT prophylaxis - Heparin 5000 units subq q12h Discussed Condition With Dr. Nair, patient, and patient's RN . Problem Qualifiers (1) Type 2 diabetes mellitus: (2) Anemia: Qualified Codes: N18.3 - Chronic kidney disease, stage 3 (moderate); D63.1 - Anemia in chronic kidney disease (3) Chronic kidney disease: Qualified Codes: N18.3 - Chronic kidney disease, stage 3 (moderate) Shruthi Morales Dec 22, 2016 23:45
[2016-12-23] VITALS: BP 138/62; PULSE 71; RESP 18; TEMP 98.2; O2SAT 96
[2016-12-23] MEDS ORDERED: VANCOMYCIN INJ 2,300 MG in SODIUM CHLORID 0.9% 500 ML INJ 500 ML IV ONE ×2
[2016-12-23] MEDS: LISINOPRIL 20 MG TAB PO SCH ×3 (00:30→20:56)
[2016-12-23] MEDS: METOPROLOL TARTRATE 50 MG TAB PO SCH ×3 (00:30→20:55)
[2016-12-23] MEDS: SODIUM CHLOR 0.9% 1000 ML INJ 1,000 ML IV SCH ×2 (01:08→09:36)
[2016-12-23 04:00] VITALS: BP 122/58; PULSE 65; RESP 16; TEMP 98.1; O2SAT 92
[2016-12-23] MEDS: PIPERACIL-TAZO 3.375 GM PREMIX 50 ML IV SCH ×4 (05:03→20:58)
[2016-12-23] MEDS: INSULIN ASPART SUPPLEMENTAL SCALE SQ SCH ×4 (05:35→20:58)
[2016-12-23] MEDS: glipiZIDE 10 MG TAB PO SCH ×2 (06:29→17:03)
[2016-12-23 07:50] LABS: AUTOMATED NEUTROPHIL # 8.4 TH/MM3 (1.8-7.7); BASOPHIL # 0.1 TH/MM3 (0-0.2); BASOPHIL % 1.4 % (0.0-2.0); EOSINOPHIL # 0.2 TH/MM3 (0-0.4); EOSINOPHIL % 1.8 % (0.0-4.0); HEMATOCRIT 31.3 % (35.0-46.0); HEMO FLAGS DIFF FINAL; LYMPH % 12.4 % (9.0-44.0); LYMPHOCYTE # 1.3 TH/MM3 (1.0-4.8); MEAN CELL VOLUME 86.9 FL (80.0-100.0); MEAN CORPUSCULAR HEMOGLOBIN 29.1 PG (27.0-34.0); MEAN CORPUSCULAR HGB CONC 33.5 % (32.0-36.0); MONO % 4.7 % (0.0-8.0); NEUT % 79.7 % (16.0-70.0); PLATELET COUNT 270 TH/MM3 (150-450); RED CELL DISTRIBUTION WIDTH 14.8 % (11.6-17.2); WHITE BLOOD COUNT 10.5 TH/MM3 (4.0-11.0)
[2016-12-23 08:00] VITALS: BP 150/55; PULSE 59; RESP 20; TEMP 98; O2SAT 94
[2016-12-23 08:10] LABS: BICARBONATE 30.1 MEQ/L (21.0-32.0); POTASSIUM 4.3 MEQ/L (3.5-5.1)
[2016-12-23] MEDS: DOCUSATE SODIUM 50 MG/SENNA 8.6 MG TAB PO SCH ×2 (09:00→20:56)
[2016-12-23] MEDS: traMADol HCL 50 MG TAB PO PRN ×2 (09:36→20:57)
[2016-12-23] MEDS: HEPARIN SODIUM - SQ 10,000 UNITS/ML VIAL SQ SCH ×2 (09:39→20:55)
--- NOTE | 2016-12-23 11:51 | HHI.PR ---
Subjective Remarks Follow up abdominal wound/cellulitis. Patient states that the erythema has improved. Denies dyspnea, chest pain. She has had cough. Objective Vitals Vital Signs Date Time Temp Pulse Resp B/P (MAP) Pulse Ox O2 Delivery O2 Flow Rate FiO2 12/23/16 09:00 Room Air 12/23/16 04:00 98.1 65 16 122/58 (79) 92 12/23/16 00:00 98.2 71 18 138/62 (87) 96 12/22/16 20:30 98.5 60 18 153/69 (97) 94 I/O 12/22/16 12/22/16 12/22/16 12/23/16 12/23/16 12/23/16 07:00 15:00 23:00 07:00 15:00 23:00 Intake Total 754 ml Balance 754 ml Intake Oral 120 ml IV Total 634 ml # Voids 2 # Bowel Movements 1 Result Diagram: 12/23/16 0700 12/23/16 0700 Objective Remarks General: Obese elderly female in no acute distress. Heart: Regular rate and rhythm. No murmur. Lungs: Clear to auscultation bilaterally. No wheezes, rales, or rhonchi. Breathing is nonlabored. Abdomen: Soft, obese. Erythema in the lower abdomen. There is a midline surgical wound with a small open wound with serous and purulent drainage. Extremities: No lower extremity edema. Psych: Alert and oriented. Procedures None Urinary Catheter: No Vascular Central Line Catheter: No A/P Problem List: (1) Cellulitis ICD Code: L03.90 - Cellulitis, unspecified (2) Post-operative infection ICD Code: T81.4XXA - Infection following a procedure, initial encounter (3) Type 2 diabetes mellitus ICD Code: E11.9 - Type 2 diabetes mellitus without complications Status: Chronic (4) Hypertension ICD Code: I10 - Essential (primary) hypertension Status: Chronic (5) Chronic kidney disease ICD Code: N18.9 - Chronic kidney disease, unspecified Status: Chronic (6) Chronic back pain ICD Code: M54.9 - Dorsalgia, unspecified; G89.29 - Other chronic pain Status: Chronic (7) Anemia ICD Code: D64.9 - Anemia, unspecified Assessment and Plan 1. Abdominal wall cellulitis, postoperative wound infection: Cytosis resolved. Lactic acid within normal limits. Continue IV vancomycin and Zosyn. Improving clinically. Consult placed to Dr. Sears, the patient's gynecologic oncology surgeon. Wound care consult pending. 2. Diabetes mellitus type 2: Continue glipizide. Monitor Accu-Cheks and cover with sliding scale insulin. Diabetic diet. 3. Hypertension: Continue amlodipine, lisinopril, metoprolol. 4. Chronic back pain secondary to lumbar spinal stenosis: Tramadol as needed. 5. Chronic kidney disease: Creatinine slightly better today. Monitor labs. 6. Anemia: Likely chronic secondary to chronic kidney disease. Monitor H&H. 7. DVT prophylaxis: Heparin. Problem Qualifiers (1) Type 2 diabetes mellitus: (2) Chronic kidney disease: Qualified Codes: N18.3 - Chronic kidney disease, stage 3 (moderate) (3) Anemia: Qualified Codes: N18.3 - Chronic kidney disease, stage 3 (moderate); D63.1 - Anemia in chronic kidney disease Rickie Garcia MD Dec 23, 2016 11:51
[2016-12-23 12:00] VITALS: BP 127/63; PULSE 59; RESP 20; TEMP 98; O2SAT 94
[2016-12-23 16:00] VITALS: BP 139/65; PULSE 63; RESP 20; TEMP 98.2; O2SAT 94
--- NOTE | 2016-12-23 19:48 | PD.CONS ---
HPI Chief Complaint Request consult due to cellulitis Date Seen: Dec 23, 2016 Time Seen: 19:35 Travel History International Travel<30 Days: No Contact w/Intl Traveler<30Days: No History of Present Illness HPI Patient is a 66-year-old female with a recently diagnosed stage III endometrial adenocarcinoma with either metastasis to the ovary versus a new primary ovarian tumor with her primary KATHARINE/BSO and debulking surgery performed October 23, [address] Maria Del Carmen Sears. Patient has experienced delayed healing with this incision and has been seen Dr. Sears in the office and with outpatient wound care since her surgery, last visit to the office was approximately 1 week ago. Patient noticed a rapid onset of erythema, pain, no abdominal swelling on evening with sudden onset of copious purulent drainage through her upper incision opening. Patient has 2 small openings one is 6 cm inferior to the umbilicus and another just underneath her pannus. Patient denies fever, shortness of breath, or chest pain. Patient has known diabetes mellitus type 2 and admits to poor control. Patient took pictures of her abdomen and her incision on just after this spontaneous drainage. She was seen in the [place] emergency department yesterday and was transferred here to [place] and placed on Zosyn and vancomycin. Dr. Sears is unavailable to see the patient at this time History Past Medical History Narrative Medical Chronic hypertension Diabetes mellitus type 2 Lumbar spinal stenosis Morbid obesity Chronic renal disease Anemia Past Surgical History Narrative Surgical KATHARINE/BSO 10/23/2016 Breast biopsy Csection x 2 with BTL Back surgery for stenosis Tonsillectomy Family History Family History: Negative Social History Alcohol Use: No Tobacco Use: No Substance Abuse: No Allergies-Medications (Allergen,Severity, Reaction): Coded Allergies: No Known Allergies (Unverified , 12/22/16) Home Meds Reported Medications Tramadol (Tramadol) 50 Mg Tab, 50 MG PO HS Y for PAIN, TAB 0 Refills 12/22/16 Glipizide (Glipizide) 10 Mg Tab, 10 MG PO BIDAC for Blood Sugar Management, #60 TAB 0 Refills Take 30 minutes before a meal 10/20/16 Metoprolol Tartrate (Metoprolol Tartrate) 50 Mg Tab, 50 MG PO BID, #60 TAB 0 Refills 10/20/16 Lisinopril (Lisinopril) 20 Mg Tab, 20 MG PO BID, #30 TAB 0 Refills 10/20/16 Amlodipine (Amlodipine) 10 Mg Tab, 10 MG PO DAILY for Blood Pressure Management , #30 TAB 0 Refills 10/20/16 Discontinued Reported Medications Acetaminophen (Tylenol Extra Strength) 500 Mg Tablet, 1000 MG PO BID Y for PAIN SCALE 1 TO 10 10/23/16 Discontinued Scripts Oxycodone-Acetaminophen (Oxycodone-Acetaminophen) 5-325 mg Tab, 1 TAB PO Q4H Y for PAIN SCALE 1 TO 5, #24 TAB Prov:Lucie Pulliam AGING ROOM OPERATOR 10/26/16 Physical Exam Vital Signs Date Time Temp Pulse Resp B/P (MAP) Pulse Ox O2 Delivery O2 Flow Rate FiO2 12/23/16 16:00 98.2 63 20 139/65 (89) 94 12/23/16 16:00 Room Air 12/23/16 14:00 21 12/23/16 12:00 98.0 59 20 127/63 (84) 94 12/23/16 12:00 Room Air 12/23/16 09:00 Room Air 12/23/16 08:00 98.0 59 20 150/55 (86) 94 12/23/16 04:00 98.1 65 16 122/58 (79) 92 12/23/16 00:00 98.2 71 18 138/62 (87) 96 12/22/16 20:30 98.5 60 18 153/69 (97) 94 Narrative GENERAL: Well-nourished, well-developed patient. SKIN: Warm and dry. HEAD: Normocephalic and atraumatic. EYES: No scleral icterus. No injection or drainage. ENT: No nasal drainage noted. Mucous membranes pink. Airway patent. NECK: Supple, trachea midline. No JVD. CARDIOVASCULAR: Regular rate and rhythm without murmurs, gallops, or rubs. RESPIRATORY: Breath sounds equal bilaterally. No accessory muscle use. ABDOMEN/GI: Abdomen soft, healing midline incision, 2 small openings in the incision approximately 6 cm inferior to the umbilicus and another opening under her pannus, some continued drainage with pressure. Cellulitis is noted circumferentially extending 6-8 cm beyond the incisional borders. EXTREMITIES: 2+ lower extremity edema. Data Data Orders Orders ^ Other Nursing Orders (12/22/16 19:36) Vancomycin Inj (Vancomycin Inj) (12/23/16 00:00) Consult Wound / Ostomy Nurse (12/22/16 ) Tramadol (Ultram) (12/23/16 00:00) Amlodipine (Norvasc) (12/23/16 09:00) Glipizide (Glucotrol) (12/23/16 07:00) Lisinopril (Prinivil) (12/23/16 00:30) Metoprolol Tartrate (Lopressor) (12/23/16 00:30) (Hub Use Only)In Phy Cons/Ref (12/23/16 ) Vancomycin Inj (Vancomycin Inj) (12/24/16 01:00) Misc. Nursing Information (12/26/16 00:45) Vancomycin Trough (12/26/16 00:45) Basic Metabolic Panel (Bmp) (12/24/16 06:00) Complete Blood Count With Diff (12/24/16 06:00) Consult Gynecology (12/23/16 ) (Hub Use Only)[facility] Labs Laboratory Tests Test 12/23/16 07:00 White Blood Count 10.5 Red Blood Count 3.60 Hemoglobin 10.5 Hematocrit 31.3 Mean Corpuscular Volume 86.9 Mean Corpuscular Hemoglobin 29.1 Mean Corpuscular Hemoglobin Concent 33.5 Red Cell Distribution Width 14.8 Platelet Count 270 Mean Platelet Volume 8.5 Neutrophils (%) (Auto) 79.7 Lymphocytes (%) (Auto) 12.4 Monocytes (%) (Auto) 4.7 Eosinophils (%) (Auto) 1.8 Basophils (%) (Auto) 1.4 Neutrophils # (Auto) 8.4 Lymphocytes # (Auto) 1.3 Monocytes # (Auto) 0.5 Eosinophils # (Auto) 0.2 Basophils # (Auto) 0.1 CBC Comment DIFF FINAL Differential Comment Blood Urea Nitrogen 20 Creatinine 1.23 Random Glucose 174 Calcium Level 8.0 Sodium Level 138 Potassium Level 4.3 Chloride Level 102 Carbon Dioxide Level 30.1 Anion Gap 6 Estimat Glomerular Filtration Rate 44 MDM Medical Record Reviewed: Yes Plan #1. Delayed wound healing with incisional infection in the deep tissue and cellulitis. When I compare her present situation to her pictures taken for Sunday there is approximately 50% reduction in the cellulitis most likely due to spontaneous drainage and IV antibiotics. Patient has several risk factors for continued slow healing including morbid obesity, malignancy, and poor glycemic control. I agree with present antibiotics with changes dependent on wound culture. I think that it is unlikely surgical intervention is necessary as patient has improved greatly in the past 24-48 hours. Agree with wound care consult #2 stage III endometrial adenocarcinoma patient is discussing initiating chemotherapy with her physician. Patient is on heparin prophylaxis due to risk factors #3 chronic hypertension on medication #4 anemia most likely due to chronic disease and chronic renal disease #5 Dr. Sears will need to be notified of this patient's admission on Sunday Alison Dobbins MD Dec 23, 2016 19:48
[2016-12-23 20:00] VITALS: BP 161/88; PULSE 88; RESP 20; TEMP 97.5; O2SAT 95
[2016-12-24] VITALS (7 sets, daily range): BP systolic 110–158; BP diastolic 57–74; PULSE 54–68; RESP 18–20; TEMP 97.5–98.4; O2SAT 91–94
[2016-12-24] MEDS: VANCOMYCIN INJ 2,500 MG in SODIUM CHLORID 0.9% 500 ML INJ 500 ML IV SCH (00:53)
[2016-12-24] MEDS: SODIUM CHLOR 0.9% 1000 ML INJ 1,000 ML IV SCH ×2 (00:54→12:08)
[2016-12-24] MEDS: traMADol HCL 50 MG TAB PO PRN ×3 (03:57→21:47)
[2016-12-24] MEDS: glipiZIDE 10 MG TAB PO SCH ×2 (05:38→17:00)
[2016-12-24] MEDS: INSULIN ASPART SUPPLEMENTAL SCALE SQ SCH ×4 (05:39→21:00)
[2016-12-24] MEDS: PIPERACIL-TAZO 3.375 GM PREMIX 50 ML IV SCH ×3 (05:39→16:59)
[2016-12-24] MEDS: DOCUSATE SODIUM 50 MG/SENNA 8.6 MG TAB PO SCH ×2 (08:19→21:00)
[2016-12-24] MEDS: HEPARIN SODIUM - SQ 10,000 UNITS/ML VIAL SQ SCH ×2 (08:20→21:48)
[2016-12-24] MEDS: METOPROLOL TARTRATE 50 MG TAB PO SCH ×2 (08:20→21:46)
[2016-12-24] MEDS: LISINOPRIL 20 MG TAB PO SCH ×2 (08:20→21:47)
[2016-12-24 09:47] LABS: AUTOMATED NEUTROPHIL # 6.3 TH/MM3 (1.8-7.7); BASOPHIL # 0.1 TH/MM3 (0-0.2); BASOPHIL % 0.7 % (0.0-2.0); EOSINOPHIL # 0.4 TH/MM3 (0-0.4); EOSINOPHIL % 4.9 % (0.0-4.0); HEMATOCRIT 33.3 % (35.0-46.0); HEMO FLAGS DIFF FINAL; LYMPH % 18.7 % (9.0-44.0); LYMPHOCYTE # 1.7 TH/MM3 (1.0-4.8); MEAN CELL VOLUME 88.1 FL (80.0-100.0); MEAN CORPUSCULAR HEMOGLOBIN 28.3 PG (27.0-34.0); MEAN CORPUSCULAR HGB CONC 32.1 % (32.0-36.0); MONO % 6.6 % (0.0-8.0); NEUT % 69.1 % (16.0-70.0); PLATELET COUNT 301 TH/MM3 (150-450); RED BLOOD COUNT 3.77 MIL/MM3 (4.00-5.30); WHITE BLOOD COUNT 9.1 TH/MM3 (4.0-11.0)
[2016-12-24 10:25] LABS: BICARBONATE 26.3 MEQ/L (21.0-32.0); POTASSIUM 4.6 MEQ/L (3.5-5.1)
--- NOTE | 2016-12-24 14:42 | HHI.PR ---
Subjective Remarks Follow-up abdominal wound infection, cellulitis. The patient states that her lower abdomen is less painful today. She denies chest pain, dyspnea, nausea, vomiting. Objective Vitals Vital Signs Date Time Temp Pulse Resp B/P (MAP) Pulse Ox O2 Delivery O2 Flow Rate FiO2 12/24/16 12:06 97.9 54 20 151/68 (95) 93 12/24/16 12:00 Room Air 12/24/16 08:28 97.8 68 18 155/74 (101) 94 12/24/16 08:00 Room Air 12/24/16 04:00 97.7 68 20 151/72 (98) 94 12/24/16 04:00 Room Air 12/24/16 00:00 Room Air 12/24/16 00:00 98.4 57 20 110/57 (74) 93 12/23/16 20:00 97.5 88 20 161/88 (112) 95 12/23/16 16:00 98.2 63 20 139/65 (89) 94 12/23/16 16:00 Room Air I/O 12/23/16 12/23/16 12/23/16 12/24/16 12/24/16 12/24/16 06:59 14:59 22:59 06:59 14:59 22:59 Intake Total 754 ml 50 ml 1295 ml 738 ml 50 ml Output Total 1000 ml Balance 754 ml 50 ml 295 ml 738 ml 50 ml Intake Oral 120 ml 720 ml IV Total 634 ml 50 ml 575 ml 738 ml 50 ml Output Urine Total 1000 ml # Voids 2 # Bowel Movements 1 0 Result Diagram: 12/24/1682612/24/16826 Objective Remarks General: Obese elderly female in no acute distress. Heart: Regular rate and rhythm. No murmur. Lungs: Clear to auscultation bilaterally. No wheezes, rales, or rhonchi. Breathing is nonlabored. Abdomen: Soft, obese. Erythema in the lower abdomen, improving. There is a midline surgical wound with a small open wound with serous and purulent drainage. Extremities: No lower extremity edema. Psych: Alert and oriented. Procedures None Urinary Catheter: No Vascular Central Line Catheter: No A/P Problem List: (1) Cellulitis ICD Code: L03.90 - Cellulitis, unspecified (2) Post-operative infection ICD Code: T81.4XXA - Infection following a procedure, initial encounter (3) Type 2 diabetes mellitus ICD Code: E11.9 - Type 2 diabetes mellitus without complications Status: Chronic (4) Hypertension ICD Code: I10 - Essential (primary) hypertension Status: Chronic (5) Chronic kidney disease ICD Code: N18.9 - Chronic kidney disease, unspecified Status: Chronic (6) Chronic back pain ICD Code: M54.9 - Dorsalgia, unspecified; G89.29 - Other chronic pain Status: Chronic (7) Anemia ICD Code: D64.9 - Anemia, unspecified Assessment and Plan 1. Abdominal wall cellulitis, postoperative wound infection: Leukocytosis resolved. Lactic acid within normal limits. Continue IV vancomycin and Zosyn. Improving clinically. The patient has been evaluated by on-call gynecology. Dr. Sears reportedly will be returning tomorrow. Wound care consult pending. 2. Diabetes mellitus type 2: Continue glipizide. Monitor Accu-Cheks and cover with sliding scale insulin. Diabetic diet. 3. Hypertension: Continue amlodipine, lisinopril, metoprolol. 4. Chronic back pain secondary to lumbar spinal stenosis: Tramadol as needed. 5. Chronic kidney disease: Creatinine stable. Monitor labs. 6. Anemia: Stable. Likely chronic secondary to chronic kidney disease. Monitor H &H. 7. DVT prophylaxis: Heparin. Problem Qualifiers (1) Type 2 diabetes mellitus: (2) Chronic kidney disease: Qualified Codes: N18.3 - Chronic kidney disease, stage 3 (moderate) (3) Anemia: Qualified Codes: N18.3 - Chronic kidney disease, stage 3 (moderate); D63.1 - Anemia in chronic kidney disease Rickie Garcia MD Dec 24, 2016 14:42
[2016-12-25] VITALS (7 sets, daily range): BP systolic 136–162; BP diastolic 62–76; PULSE 53–58; RESP 18–20; TEMP 97.6–98.4; O2SAT 90–95
[2016-12-25] MEDS: PIPERACIL-TAZO 3.375 GM PREMIX 50 ML IV SCH ×5 (00:23→23:04)
[2016-12-25] MEDS: VANCOMYCIN INJ 2,500 MG in SODIUM CHLORID 0.9% 500 ML INJ 500 ML IV SCH (00:51)
[2016-12-25] MEDS: SODIUM CHLOR 0.9% 1000 ML INJ 1,000 ML IV SCH ×2 (00:54→12:26)
[2016-12-25] MEDS: INSULIN ASPART SUPPLEMENTAL SCALE SQ SCH ×4 (05:52→20:35)
[2016-12-25] MEDS: glipiZIDE 10 MG TAB PO SCH ×2 (05:52→17:17)
[2016-12-25] MEDS: LISINOPRIL 20 MG TAB PO SCH ×2 (08:32→20:31)
[2016-12-25] MEDS: METOPROLOL TARTRATE 50 MG TAB PO SCH ×2 (08:33→20:32)
[2016-12-25] MEDS: HEPARIN SODIUM - SQ 10,000 UNITS/ML VIAL SQ SCH ×2 (08:35→22:11)
[2016-12-25] MEDS: DOCUSATE SODIUM 50 MG/SENNA 8.6 MG TAB PO SCH ×2 (08:35→20:32)
--- NOTE | 2016-12-25 15:14 | HHI.PR ---
Subjective Remarks Follow up cellulitis, wound infection. The patient states that she is feeling better. Pain and erythema continue to improve. She denies chest pain, dyspnea. Objective Vitals Vital Signs Date Time Temp Pulse Resp B/P (MAP) Pulse Ox O2 Delivery O2 Flow Rate FiO2 12/25/16 13:15 92 12/25/16 12:06 98.1 53 18 136/63 (87) 95 12/25/16 08:36 97.8 55 18 140/62 (88) 92 12/25/16 08:30 Room Air 12/25/16 04:11 93 12/25/16 00:00 97.8 57 19 155/65 (95) 90 12/24/16 20:30 94 21 12/24/16 20:00 97.5 63 19 158/72 (100) 94 12/24/16 19:00 94 Room Air 12/24/16 16:06 98.1 57 20 128/61 (83) 91 12/24/16 16:00 Room Air I/O 12/24/16 12/24/16 12/24/16 12/25/16 12/25/16 12/25/16 07:00 15:00 23:00 07:00 15:00 23:00 Intake Total 738 ml 877 ml 1048 ml 1000 ml Balance 738 ml 877 ml 1048 ml 1000 ml Intake Oral 600 ml IV Total 738 ml 877 ml 448 ml 1000 ml # Voids 3 7 # Bowel Movements 0 Result Diagram: 12/24/1682612/24/16826 Objective Remarks General: Obese elderly female in no acute distress. Heart: Regular rate and rhythm. No murmur. Lungs: Clear to auscultation bilaterally. No wheezes, rales, or rhonchi. Breathing is nonlabored. Abdomen: Soft, obese. Lower abdomen erythema mostly resolved. There is a midline surgical wound with a small open wound with serous drainage. Extremities: No lower extremity edema. Psych: Alert and oriented. Procedures None Urinary Catheter: No Vascular Central Line Catheter: No A/P Problem List: (1) Cellulitis ICD Code: L03.90 - Cellulitis, unspecified (2) Post-operative infection ICD Code: T81.4XXA - Infection following a procedure, initial encounter (3) Type 2 diabetes mellitus ICD Code: E11.9 - Type 2 diabetes mellitus without complications Status: Chronic (4) Hypertension ICD Code: I10 - Essential (primary) hypertension Status: Chronic (5) Chronic kidney disease ICD Code: N18.9 - Chronic kidney disease, unspecified Status: Chronic (6) Chronic back pain ICD Code: M54.9 - Dorsalgia, unspecified; G89.29 - Other chronic pain Status: Chronic (7) Anemia ICD Code: D64.9 - Anemia, unspecified Assessment and Plan 1. Abdominal wall cellulitis, postoperative wound infection: Improving. Leukocytosis resolved. Lactic acid within normal limits. Continue IV vancomycin and Zosyn. Improving clinically. The patient has been evaluated by on-call gynecology covering for Dr. Sears. Wound care consult pending. Wound culture growing Staph Aureus. 2. Diabetes mellitus type 2: Continue glipizide. Monitor Accu-Cheks and cover with sliding scale insulin. Diabetic diet. 3. Hypertension: Continue amlodipine, lisinopril, metoprolol. 4. Chronic back pain secondary to lumbar spinal stenosis: Tramadol as needed. 5. Chronic kidney disease: Creatinine stable. Monitor labs. 6. Anemia: Stable. Likely chronic secondary to chronic kidney disease. Monitor H &H. 7. DVT prophylaxis: Heparin. Discharge Planning Possible discharge home next 1-2 days pending continued improvement. Problem Qualifiers (1) Type 2 diabetes mellitus: (2) Chronic kidney disease: Qualified Codes: N18.3 - Chronic kidney disease, stage 3 (moderate) (3) Anemia: Qualified Codes: N18.3 - Chronic kidney disease, stage 3 (moderate); D63.1 - Anemia in chronic kidney disease Rickie Garcia MD Dec 25, 2016 15:14
[2016-12-25] MEDS: traMADol HCL 50 MG TAB PO PRN ×2 (15:42→20:32)
[2016-12-26] VITALS: BP 145/66; PULSE 56; RESP 20; TEMP 97.5; O2SAT 94
[2016-12-26] MEDS ORDERED: PHARMACY ORDERED LAB ONE (00:45)
[2016-12-26] MEDS: VANCOMYCIN INJ 2,500 MG in SODIUM CHLORID 0.9% 500 ML INJ 500 ML IV SCH (01:36)
[2016-12-26 04:00] VITALS: BP 141/64; PULSE 54; RESP 20; TEMP 98.2; O2SAT 95
[2016-12-26] MEDS: PIPERACIL-TAZO 3.375 GM PREMIX 50 ML IV SCH ×3 (05:47→18:00)
[2016-12-26] MEDS: SODIUM CHLOR 0.9% 1000 ML INJ 1,000 ML IV SCH (05:47)
[2016-12-26] MEDS: glipiZIDE 10 MG TAB PO SCH ×2 (06:07→16:00)
[2016-12-26] MEDS: traMADol HCL 50 MG TAB PO PRN (06:08)
[2016-12-26] MEDS: INSULIN ASPART SUPPLEMENTAL SCALE SQ SCH ×3 (06:10→16:00)
[2016-12-26 08:18] VITALS: BP 140/66; PULSE 53; RESP 18; TEMP 97.7; O2SAT 92
[2016-12-26] MEDS: METOPROLOL TARTRATE 50 MG TAB PO SCH (08:55)
[2016-12-26] MEDS: DOCUSATE SODIUM 50 MG/SENNA 8.6 MG TAB PO SCH (08:55)
[2016-12-26] MEDS: LISINOPRIL 20 MG TAB PO SCH (08:55)
[2016-12-26] MEDS ORDERED: SULF20OR2 PO (11:34)
--- NOTE | 2016-12-26 11:34 | HHI.DCPOC ---
Discharge Care Plan Diagnosis: (1) Cellulitis (2) Post-operative infection (3) Type 2 diabetes mellitus (4) Hypertension (5) Chronic kidney disease Goals to Promote Your Health * To prevent worsening of your condition and complications * To maintain your health at the optimal level Directions to Meet Your Goals Take your medications as prescribed Follow your dietary instruction Follow activity as directed Keep your appointments as scheduled Take your immunizations and boosters as scheduled If your symptoms worsen call your PCP, if no PCP go to Urgent Care Center or Emergency Room Smoking is Dangerous to Your Health. Avoid second hand smoke Call the 24-hour hour crisis hotline for domestic abuse at Rickie Garcia MD Dec 26, 2016 11:34
[2016-12-26] MEDS ORDERED: CEPH250S PO (11:36)
--- NOTE | 2016-12-26 11:38 | HHI.DS ---
Discharge Summary Admission Date Dec 22, 2016 at 20:11 Discharge Date: Dec 26, 2016 Admitting Diagnosis cellulitis, post-op infection . (1) Cellulitis ICD Code: L03.90 - Cellulitis, unspecified (2) Post-operative infection ICD Code: T81.4XXA - Infection following a procedure, initial encounter (3) Type 2 diabetes mellitus ICD Code: E11.9 - Type 2 diabetes mellitus without complications Status: Chronic (4) Hypertension ICD Code: I10 - Essential (primary) hypertension Status: Chronic (5) Chronic kidney disease ICD Code: N18.9 - Chronic kidney disease, unspecified Status: Chronic (6) Chronic back pain ICD Code: M54.9 - Dorsalgia, unspecified; G89.29 - Other chronic pain Status: Chronic (7) Anemia ICD Code: D64.9 - Anemia, unspecified Procedures None Brief History - From Admission 66 y/o female with endometrial and ovarian cancer s/p robotic assisted lap followed by exploratory laparotomy with KATHARINE with BSO on 10/23/16 who presented to ED on 12/22/16 with erythema and drainage in surgical area. The patient underwent a robotic-assisted laparoscopy on 10/23/[address] Sears which was changed to exploratory laparotomy with total abdominal hysterectomy and bilateral salpingo-oophorectomy. She is still making up her mind whether or not to proceed with recommended chemotherapy and radiation. She has had an open wound in the postoperative surgical site and has been receiving home health with wound care. On 11/10/16, she had a wound culture + for staph aureus. She was treated with antibiotics and Dr. Sears' office visit notes indicate that the wound is still open but healing well without purulent drainage or foul smell. On 12/21/2016, she got up and went to the bathroom and noticed a large amount of blood and purulent drainage "pouring" out of her wound and onto the floor and into the toilet. She states that she thought the wound was getting better until this point. She has also had some burning pain in this open area. She states when she woke up on 12/22/2016, her entire lower abdominal wall was erythematous prompting her to seek medical attention. She denies any fever, chills, recent illness, nausea, vomiting, diarrhea, or shortness of breath. She does report a dry, nonproductive cough that started today. CBC/BMP: 12/24/16 0827 12/24/16 0827 Significant Findings Laboratory Tests Test 12/24/16 08:27 12/26/16 01:30 12/26/16 09:45 Red Blood Count 3.77 MIL/MM3 (4.00-5.30) Hemoglobin 10.7 GM/DL (11.6-15.3) Hematocrit 33.3 % (35.0-46.0) Eosinophils (%) (Auto) 4.9 % (0.0-4.0) Blood Urea Nitrogen 21 MG/DL (7-18) Creatinine 1.29 MG/DL (0.50-1.00) Random Glucose 133 MG/DL (74-106) Estimat Glomerular Filtration Rate 41 ML/MIN (>89) Vancomycin Level Trough 22.3 MCG/ML (5.0-10.0) PE at Discharge General: Obese elderly female in no acute distress. Heart: Regular rate and rhythm. No murmur. Lungs: Clear to auscultation bilaterally. No wheezes, rales, or rhonchi. Breathing is nonlabored. Abdomen: Soft, obese. Lower abdomen erythema mostly resolved. There is a midline surgical wound with a small open wound with serous drainage. Extremities: No lower extremity edema. Psych: Alert and oriented. Pt update on day of discharge The patient states that she feels much better today. There is no tightness or pain in her lower abdomen. She feels ready to go home. Hospital Course The patient was admitted for management of a postoperative wound infection. Culture grew MSSA. She was continued on antibiotics. There was significant improvement in the cellulitis surrounding the wound. She was evaluated by the second officer consulting systems engineer, covering for her gynecologic oncologist. She was felt to be stable for discharge home on oral antibiotics. Pt Condition on Discharge: Stable Discharge Disposition: Disch w/ Home Health Serv Discharge Time: > 30 minutes Discharge Instructions DIET: Follow Instructions for: Diabetic Diet Activities you can perform: Regular-No Restrictions Follow up Referrals: Oncology - 1 Week with Maria Del Carmen Sears MD PCP Follow-up - 2 Weeks New Medications: Cephalexin Liq (Cephalexin Liq) 250 Mg/5 Ml Susp 500 MG PO Q6H for Infection, #400 ML 0 Refills Continued Medications: Amlodipine (Amlodipine) 10 Mg Tab 10 MG PO DAILY for Blood Pressure Management, #30 TAB 0 Refills Glipizide (Glipizide) 10 Mg Tab 10 MG PO BIDAC for Blood Sugar Management, #60 TAB 0 Refills Take 30 minutes before a meal Lisinopril (Lisinopril) 20 Mg Tab 20 MG PO BID, #30 TAB 0 Refills Metoprolol Tartrate (Metoprolol Tartrate) 50 Mg Tab 50 MG PO BID, #60 TAB 0 Refills Tramadol (Tramadol) 50 Mg Tab 50 MG PO HS PRN for PAIN, TAB 0 Refills Rickie Garcia MD Dec 26, 2016 11:38
[2016-12-26] MEDS: HEPARIN SODIUM - SQ 10,000 UNITS/ML VIAL SQ SCH (11:48)
[2016-12-26 12:19] VITALS: BP 145/73; PULSE 50; RESP 18; TEMP 97.3; O2SAT 95
--- NOTE | 2016-12-26 12:38 | HHI.FF ---
Face to Face Verification Diagnosis: (1) Post-operative infection Home Health Nursing Order: Wound care and dressing changes Nursing assessment with vital signs Instructions: Top wound: pack with 1/4" iodoform. Gauze dressing. Middle wound: Santyl ointment daily. Gauze dressing. Distal wound: Daily cleansing, 4X4 gauze dressing. I have seen patient Shobha Berry on 12/26/16. My clinical findings support the need for the requested home health care services because: Limited ability to care for self Infection w/ risk of complications I certify that my clinical findings support that this patient is homebound because: Unsteady gait/balance Rickie Garcia MD Dec 26, 2016 12:38
--- NOTE | 2016-12-26 12:46 | PD.WCN.NOT ---
Wound Consult Description: Consult for Wound Management of abdominal incision/wound with post op infection per THANG Morales Communicated with: Dr Garcia Patient RN Recommendation: Cleanse all abdominal wounds with NS and gauze. Lightly and gently pack 1st wound under umbilicus with 1/4" Iodoform and cover with foam dressing/dry cover daily Apply Santyl nickel thick to middle wound on abdomen with (yellow adherent slough) and cover with 4x4 gauze dressing daily Apply dry cover to distal wound under pannus Additional Information: Patient seen on for 3 wounds noted to midline abdomen. Top wound measures 0.3cm x 0.3cm x 3.9cm with minimal sanguinous drainage noted after gently probing with sterile qtip for depth. Wound was gently packed with 1/4" Iodoform and covered with optifoam and bordered gauze dated today. Recommend daily packing. Middle wound is measuring 1.2cm x 0.4cm x 100% yellow adherent slough and scant clear yellow drainage that was cleansed with NS and gauze prior to applying Optifoam AG and securing with bordered gauze dressing dated today. Recommend to apply Santyl daily and cover. Distal wound measures 0.8cm x 0.2cm x <0.1cm of red non granulating tissue and minimal brown clear drainage noted to removed 4x4 gauze dressing. Wound was covered with Optifoam AG and secured with bordered gauze dressing dated today. Recommend to cleanse daily and cover with gauze. Angela Fernandez [facility] Dec 26, 2016 12:46
[2016-12-27] MEDS ORDERED: VANCOMYCIN INJ 2,500 MG in SODIUM CHLORID 0.9% 500 ML INJ 500 ML IV SCH (13:00)
== END 2016-12-26 18:59 | disposition home or self-care (01) | DRG 863 ==
LOC: NEDDLT 20:08 → N04A 20:10 → OBSVTOIN 20:11
PROVIDERS: ADMIT Family Medicine; ATTEND Family Medicine
DX: T81.4XXA Infection following a procedure, initial encounter (principal); C79.60 Secondary malignant neoplasm of unspecified ovary; E11.22 Type 2 diabetes mellitus with diabetic chronic kidney disease; N18.3 Chronic kidney disease, stage 3 (moderate); I12.9 Hypertensive chronic kidney disease with stage 1 through stage 4 chronic kidney disease, or unspecified chronic kidney disease; D63.1 Anemia in chronic kidney disease; C54.1 Malignant neoplasm of endometrium; L03.311 Cellulitis of abdominal wall; G89.29 Other chronic pain; M54.9 Dorsalgia, unspecified; M48.06 Spinal stenosis, lumbar region; Z79.899 Other long term (current) drug therapy; Z90.710 Acquired absence of both cervix and uterus
CPT/HCPCS: 80048; 80053; 80202; 81001; 82565; 82948; 83605; 83735; 85025; 85610; 85730; 86403; 87040; 87070; 87186; 96365; 96367; J1644; J1815; J2543; J3370; J7030; J7040; J7050